=== PATIENT | female | born 1950 | race Caucasian/White ===

== ENCOUNTER 2022-08-26 08:17 | Outpatient (CLI) | payer OTHER ==
--- NOTE | 2022-08-26 10:02 | DEXA Report ---
PROCEDURE: Dexa Spine and/or Hip INDICATIONS: SCREENING FOR OSTEOPOROSIS TECHNIQUE: Dual energy x-ray absorptiometry (DXA) was performed on a Xendo System. Regions measur ed are the AP Spine, femoral neck, and if needed forearm. COMPARISON: None. FINDINGS: Lumbar Spine: Bone Mineral Density 0.89 g/cm/cm,T score -2.4, Left Femoral Neck: Bone Mineral Density 0.72 g/cm/cm, T score -2.3, Left Hip: Bone Mineral Density 0.79 g/cm/cm,T score -1.8, (T score greater or equal to -1.0: NORMAL) (T score from -1.1 to -2.4: OSTEOPENIA) (T score less than or equal to -2.5 to: OSTEOPOROSIS) Impression: Osteopenia of the lumbar spine and femoral neck/hip. Elevated fracture risk. Patients with diagnosis of osteoporosis or osteopenia should have regular bone mineral density assess ment. For those eligible for Medicare, routine testing is allowed once every 2 years. Testing frequ ency can be increased for patients who have rapidly progressing disease or for those who are receivin g medical therapy to restore bone mass. Reviewed by: Matt Cortez MD on 08/26/2022 10:01 AM PDT Approved by: Matt Cortez MD on 08/26/2022 10:01 AM PDT Station ID: [id number]
== END 2022-08-26 08:18 | disposition home or self-care (01) ==
LOC: DI 08:17
PROVIDERS: ATTEND Internal Medicine
DX: Z13.820 Encounter for screening for osteoporosis (principal); M85.89 Other specified disorders of bone density and structure, multiple sites